=== PATIENT | male | born 1990 | race Caucasian/White ===

== ENCOUNTER 2017-08-16 22:26 | Emergency (ER) | payer MEDICAID ==
[~2017-08-16] VITALS: Ht 177.8 cm; Wt 78.0 kg
[2017-08-16 22:32] VITALS: BP 109/82
== END 2017-08-17 00:43 | disposition left against medical advice (07) ==
LOC: ER 22:26
DX: M54.9 Dorsalgia, unspecified (principal); Z53.21 Procedure and treatment not carried out due to patient leaving prior to being seen by health care provider

== ENCOUNTER 2019-08-31 21:34 | Emergency (ER) | payer MEDICAID ==
[~2019-08-31] VITALS: Ht 177.8 cm; Wt 79.5 kg
[2019-08-31] MEDS ORDERED: TETanus/Pertussis (Acell)/Diphther VAC/PF (Tdap-Adult) 0.5ml syringe IMVAC ONE (22:40)
[2019-08-31] MEDS ORDERED: iohexol 300mg/ml 100ml inj. ONE (22:53)
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
[2019-09-01 00:56] VITALS: BP 144/75
== END 2019-09-01 01:00 | disposition home or self-care (01) ==
LOC: ER 21:34
DX: S00.11XA Contusion of right eyelid and periocular area, initial encounter (principal); S50.312A Abrasion of left elbow, initial encounter; S50.311A Abrasion of right elbow, initial encounter; S20.411A Abrasion of right back wall of thorax, initial encounter; S20.319A Abrasion of unspecified front wall of thorax, initial encounter; F17.200 Nicotine dependence, unspecified, uncomplicated; Z72.89 Other problems related to lifestyle; W01.198A Fall on same level from slipping, tripping and stumbling with subsequent striking against other object, initial encounter; Y93.89 Activity, other specified; Y92.89 Other specified places as the place of occurrence of the external cause; Y99.8 Other external cause status
CPT/HCPCS: 70450; 70486; 71260; 74177; 90471; 90715; 99285; Q9967

== ENCOUNTER 2022-10-11 20:07 | Emergency (ER) | payer MEDICAID ==
[~2022-10-11] VITALS: Ht 177.8 cm; Wt 90.9 kg
[2022-10-11 20:30] VITALS: BP 145/83
[2022-10-11] MEDS ORDERED: DOXY100C76 PO (22:33)
[2022-10-11] MEDS ORDERED: CEPH-585 PO (22:33)
== END 2022-10-11 22:49 | disposition home or self-care (01) ==
LOC: ER 20:07
DX: S90.511A Abrasion, right ankle, initial encounter (principal); Z79.899 Other long term (current) drug therapy; X58.XXXA Exposure to other specified factors, initial encounter; Y93.89 Activity, other specified; Y92.89 Other specified places as the place of occurrence of the external cause; Y99.8 Other external cause status
CPT/HCPCS: 99283

== ENCOUNTER 2023-02-04 13:20 | Emergency (ER) | payer MEDICAID ==
[~2023-02-04] VITALS: Ht 180.3 cm; Wt 90.0 kg
[2023-02-04 13:32] VITALS: BP 143/62; PULSE 132; RESP 18; TEMP 97; O2SAT 98
== END 2023-02-04 14:14 | disposition left against medical advice (07) ==
LOC: ER 13:24
DX: L02.612 Cutaneous abscess of left foot (principal); Z53.21 Procedure and treatment not carried out due to patient leaving prior to being seen by health care provider
CPT/HCPCS: 99281

== ENCOUNTER 2023-03-01 22:53 | Emergency (ER) | payer MEDICAID | END 2023-03-02 01:14 | disposition left against medical advice (07) | LOC: ER 22:54 | DX: Z76.0 Encounter for issue of repeat prescription (principal); Z53.21 Procedure and treatment not carried out due to patient leaving prior to being seen by health care provider ==

== ENCOUNTER 2024-11-14 14:43 | Emergency (ER) | payer MEDICAID ==
[~2024-11-14] VITALS: Ht 180.3 cm; Wt 64.5 kg
[2024-11-14 14:46] VITALS: BP 112/85; PULSE 109; RESP 15; O2SAT 96
--- NOTE | 2024-11-14 15:04 | Physician Documentation ---
History of Present Illness ~ Chief Complaint: Rash Stated Complaint: RASH ON HANDS OK to notify your PCP?: Yes Primary Medical Doctor: Esthela Source: patient Mode of Arrival: POV Exam Limitations: no limitations HPI 33-year-old male presents with bilateral hand itching. He reports that he was cleaning up his garage and is not sure what he could have come in contact with. No medications taken prior to arrival for her symptoms. Medication Reconciliation Allergies: Coded Allergies: No Known Allergies (Unverified , 10/11/22) Past Medical History Past Medical History: No Pertinent History Past Surgical History: no surgical history Alcohol Use: Occasionally Drug Use: none Lives with: Family Lives In: Home Review of Systems All Other Systems at this time: Reviewed and Negative Physical Exam Vital Signs: RN Vital Signs have been reviewed: Yes, Temperature: 99.4, Source: Temporal, Heart Rate: 109, Respiratory Rate: 15, BP: 112/85, Pulse Oximetry: 96, Weight: 64.500 Pulse Oximetry Reflects: adequate oxygenation Physical Exam General: Alert, no distress. HEENT: No injection, moist mucous membranes. Neck: Full range of motion. Respiratory: No respiratory distress, equal chest rise and fall. Chest: No accessory muscle use. Cardiovascular: Regular rate and rhythm. Gastrointestinal: Nondistended. Extremities: Normal range of motion, no deformity. Neurologic: Oriented x4. Psychiatric: Normal mood and affect. Skin: Normal color, warm and dry. Progress Results/Orders Results/Orders Vital Signs 11/14/24 14:46 Temp 99.4 Pulse 109 Resp 15 B/P (MAP) 112/85 Pulse Ox 96 Medical Decision Making Findings The patient eloped after medical screening exam Departure Disposition: LEFT AWOL/ELOPED Impression: Primary Impression: Eloped from emergency department Referrals: NO PRIMARY CARE PROVIDER (PCP) Additional Comment Medical Screen Exam This patient recieved a medical screening examination. After reviewing the individual's medical complaints with presenting symptoms and performing an appropriate physical examination, it was determined that no immediate life- threatening emergency medical condition is present. This individual is also not a women having contractions. Signature Scribe Signature: . Attestation: Scribed for Emergency,Department by Alexander Moran NP . 11/14/24 18:51 ALEXANDER SIERRA Nov 14, 2024 15:04
[2024-11-14 18:52] VITALS: TEMP 99.4
== END 2024-11-14 18:53 | disposition left against medical advice (07) ==
LOC: ER 14:45
DX: L29.9 Pruritus, unspecified (principal); Z72.89 Other problems related to lifestyle
CPT/HCPCS: 99282